=== PATIENT | female | born 1990 | race Caucasian/White ===

== ENCOUNTER 2018-05-26 19:59 | Emergency (ER) | payer SELFPAY ==
--- NOTE | 2018-05-26 22:56 | ER Document Report ---
ED General - General Chief Complaint: Abdominal Pain Stated Complaint: ABDOMINAL PAIN Time Seen by Provider: 05/26/18 22:45 Mode of Arrival: Ambulatory Information source: Patient Notes: 27-year-old female with no reported past medical history presents with complaint of abdominal pain. Patient states abdominal pain started 2 weeks prior to arrival. Pain is located in the epigastric and suprapubic region. She describes it as intermittent, pressure-like. Patient has had urinary frequency and vaginal discharge. She states she is sexually active, does not use protection. Patient has had associated nausea and one episode of vomiting. Her last menstrual period was 04/20/2018. She did take a test approximately 2 weeks ago which she reports to be negative. She has had 2 previous pregnancies that resulted in live births. TRAVEL OUTSIDE OF THE [place] IN LAST 30 DAYS: No - HPI Onset: Other Onset/Duration: Intermittent Quality of pain: Pressure Severity: Mild Associated symptoms: Nausea, Vomiting Exacerbated by: Denies Relieved by: Denies Similar symptoms previously: Yes Recently seen / treated by doctor: No - Related Data Allergies/Adverse Reactions: Penicillins Allergy (Verified 05/27/18 00:30) tramadol Allergy (Verified 05/27/18 00:30) acetaminophen [From Tylenol] Adverse Reaction (Verified 05/27/18 00:30) diphenhydramine [From Benadryl] Adverse Reaction (Verified 05/27/18 00:30) Past Medical History - General Information source: Patient - Social History Smoking Status: Current Some Day Smoker Chew tobacco use (# tins/day): No Frequency of alcohol use: None Drug Abuse: None Lives with: Family Family History: Reviewed & Not Pertinent Patient has suicidal ideation: No Patient has homicidal ideation: No - Medical History Medical History: Negative Renal/ Medical History: Denies: Hx Peritoneal Dialysis Past Surgical History: Reports: Hx Orthopedic Surgery - R wrist Review of Systems - Review of Systems Notes: REVIEW OF SYSTEMS: CONSTITUTIONAL : Denies fever, chills, or sweats. Denies recent illness. Denies weight loss, recent hospitalizations. EENT: Denies visual changes, eye pain. Denies nasal or sinus congestion or discharge. Denies sore throat, oral lesions, difficulty swallowing. CARDIOVASCULAR: Denies chest pain. Denies palpitations. Denies lower extremity edema. RESPIRATORY: Denies cough, cold, or chest congestion. Denies shortness of breath, wheezing. GASTROINTESTINAL: Denies abdominal distention. Denies diarrhea. Denies blood in vomitus, stools, or per rectum. Denies black, tarry stools. Denies constipation. GENITOURINARY: Denies difficulty urinating, painful urination, blood in urine. MUSCULOSKELETAL: Denies back or neck pain or stiffness. Denies joint pain or swelling. SKIN: Denies rash, lesions or sores. HEMATOLOGIC : Denies easy bruising or bleeding. LYMPHATIC: Denies swollen glands. NEUROLOGICAL: Denies confusion or altered mental status. Denies passing out or loss of consciousness. Denies dizziness or lightheadedness. Denies headache. Denies weakness or paralysis. Denies problems difficulty with ambulation, slurred speech. Denies sensory loss, numbness, or tingling. Denies seizures. PSYCHIATRIC: Denies anxiety or stress. Denies depression, suicidal ideation, or homicidal ideation. Denies visual or auditory hallucinations. Physical Exam - Vital signs Vitals: Temp Pulse Resp BP Pulse Ox 98.3 F 86 18 105/77 99 05/26/18 20:38 05/26/18 20:38 05/26/18 20:38 05/26/18 20:38 05/26/18 20:38 - Notes Notes: PHYSICAL EXAMINATION: GENERAL: Well-appearing, well-nourished and in no acute distress. HEAD: Atraumatic, normocephalic. EYES: Pupils equal round and reactive to light, extraocular movements intact, conjunctiva are normal. ENT: Nares patent, oropharynx clear without exudates. Moist mucous membranes. NECK: Normal range of motion, supple without lymphadenopathy LUNGS: Breath sounds clear to auscultation bilaterally and equal. No wheezes rales or rhonchi. HEART: Regular rate and rhythm without murmurs ABDOMEN: Soft, nontender, nondistended abdomen. No guarding, no rebound. No masses appreciated. Female : No external vaginal lesions, no vaginal bleeding, thin white discharge, no cervical motion tenderness, os closed. Musculoskeletal: Normal range of motion, no pitting or edema. No cyanosis. NEUROLOGICAL: Cranial nerves grossly intact. Normal speech, normal gait. Normal sensory, motor exams PSYCH: Normal mood, normal affect. SKIN: Warm, Dry, normal turgor, no rashes or lesions noted. Course - Re-evaluation Re-evalutation: Laboratory 05/26/18 05/26/18 05/26/18 21:33 23:15 23:15 Beta HCG, Quant 600.08 H Total Beta HCG POSITIVE Urine Color YELLOW Urine Appearance CLOUDY Urine pH 6.0 Ur Specific [place] 1.012 Urine Protein NEGATIVE Urine Glucose (UA) NEGATIVE Urine Ketones NEGATIVE Urine Blood SMALL H Urine Nitrite POSITIVE H Urine Bilirubin NEGATIVE Urine Urobilinogen NEGATIVE Ur Leukocyte Esterase LARGE H Urine WBC (Auto) >182 Urine RBC (Auto) 17 Urine Bacteria (Auto) 1+ Urine WBC Clumps MANY Squamous Epi Cells Auto 6 Urine Mucus (Auto) MANY Urine Ascorbic Acid NEGATIVE Urine HCG, Qual POSITIVE H Epi Cells (Wet Prep) Bacteria (Wet Prep) Trichomonas (Wet Prep) Vaginal WBC Vaginal RBC Vaginal Yeast 05/26/18 23:36 Beta HCG, Quant Total Beta HCG Urine Color Urine Appearance Urine pH Ur Specific [place] Urine Protein Urine Glucose (UA) Urine Ketones Urine Blood Urine Nitrite Urine Bilirubin Urine Urobilinogen Ur Leukocyte Esterase Urine WBC (Auto) Urine RBC (Auto) Urine Bacteria (Auto) Urine WBC Clumps Squamous Epi Cells Auto Urine Mucus (Auto) Urine Ascorbic Acid Urine HCG, Qual Epi Cells (Wet Prep) 4+ EPITHELIALS SEEN Bacteria (Wet Prep) 3+ BACTERIA SEEN Trichomonas (Wet Prep) NO TRICHOMONAS SEEN Vaginal WBC 1+ WBCS SEEN Vaginal RBC RARE RBCS SEEN Vaginal Yeast NO YEAST SEEN 05/27/18 01:04 27-year-old female presents with complaint of nausea, urinary frequency and epigastric abdominal pain that started 2 weeks prior to arrival. Patient found to be with a beta quant of 600. No vaginal bleeding on exam. Benign abdominal exam. Urinalysis significant for UTI. Wet prep shows bacterial vaginosis. Patient will follow up with the health department. She received Phenergan, Macrobid and Flagyl during her ED course. Patient provided the opportunity to ask questions, and express concerns. Discharge instructions discussed. Patient is agreeable with discharge home. Return indications explained and discussed with the patient who displays understanding. Patient encouraged to return to the emergency department immediately with any concerns. - Vital Signs Vital signs: Temp Pulse Resp BP Pulse Ox 97.7 F 80 13 103/74 100 05/27/18 01:17 05/27/18 01:17 05/27/18 01:17 05/27/18 01:17 05/27/18 01:17 - Laboratory Laboratory results interpreted by me: 05/26/18 05/26/18 05/26/18 21:33 23:15 23:15 Beta HCG, Quant 600.08 H Urine Blood SMALL H Urine Nitrite POSITIVE H Ur Leukocyte Esterase LARGE H Urine HCG, Qual POSITIVE H Discharge - Discharge Clinical Impression: First trimester , Bacterial vaginosis, Nausea UTI (urinary tract infection) Qualifiers: Urinary tract infection type: acute cystitis Hematuria presence: without hematuria Qualified Code(s): N30.00 - Acute cystitis without hematuria Disposition: HOME, SELF-CARE Instructions: Nitrofurantoin ([facility]), Pelvic Pain in ([facility]), Urinary Tract Infection, Child ([facility]), Vaginosis, Bacterial ([facility]) Additional Instructions: Your testing today shows that you are , have a urinary tract infection and bacterial vaginosis. You will be prescribed Macrobid and Flagyl. Your beta quant today is 600. Your pelvic exam showed no vaginal bleeding. Please follow-up with the health department as soon as you are able. Prescriptions: Metronidazole [Flagyl 500 mg Tablet] 500 mg PO BID #14 tablet Nitrofurantoin Monohyd/M-Cryst [Macrobid 100 mg Capsule] 1 tab PO BID #20 capsule Referrals: MARILYN MAIER [Primary Care Provider] - Follow up as needed [facility] [NO LOCAL MD] - Follow up as needed
[2018-05-26 23:47] LABS: APPEARANCE,URINE CLOUDY; BILIRUBIN,URINE NEGATIVE (NEGATIVE); COLOR,URINE YELLOW; GLUCOSE, URINE NEGATIVE (NEGATIVE); KETONES,URINE NEGATIVE (NEGATIVE); LEUKOCYTE ESTERASE,URINE LARGE (NEGATIVE); NITRITE,URINE POSITIVE (NEGATIVE); PROTEIN,URINE NEGATIVE (NEGATIVE); URINE SPECIFIC GRAVITY 1.012; UROBILINOGEN,URINE NEGATIVE mg/dL (<2.0)
[2018-05-26 23:58] LABS: BACTERIA (WET MOUNT) 3+ BACTERIA SEEN; EPITHELIALS (WET MOUNT) 4+ EPITHELIALS SEEN; RBCS (WET MOUNT) RARE RBCS SEEN; T.VAGINALIS (WET MOUNT) NO TRICHOMONAS SEEN; WBCS (WET MOUNT) 1+ WBCS SEEN; YEAST (WET MOUNT) NO YEAST SEEN
[2018-05-27] MEDS ORDERED: PROMETHAZINE HCL 25 MG TABLET PO ONE (00:11)
[2018-05-27] MEDS ORDERED: NITROFURANTOIN MONOHYD/M-CRYST 100 MG CAPSULE PO ONE (00:11)
[2018-05-27] MEDS ORDERED: METRONIDAZOLE 500 MG TABLET PO ONE (01:03)
[2018-05-27 01:24] VITALS: BP 103/74
[2018-05-27 01:52] LABS: CHLAM PCR NOT DETECTED (NOT DETECT); GON PCR NOT DETECTED (NOT DETECT)
== END 2018-05-27 01:24 | disposition home or self-care (01) ==
LOC: ER 19:59
DX: O23.41 Unspecified infection of urinary tract in pregnancy, first trimester (principal); O23.591 Infection of other part of genital tract in pregnancy, first trimester; N76.0 Acute vaginitis; B96.89 Other specified bacterial agents as the cause of diseases classified elsewhere; R10.13 Epigastric pain; O99.331 Smoking (tobacco) complicating pregnancy, first trimester; Z88.0 Allergy status to penicillin; Z88.6 Allergy status to analgesic agent
CPT/HCPCS: 99284; 36415; 87210; 84702; 81025; 81001; 87491; 87591; J8499

== ENCOUNTER 2018-06-20 21:24 | Emergency (ER) | payer SELFPAY ==
--- NOTE | 2018-06-20 23:26 | ER Document Report ---
ED General - General Chief Complaint: Lower Abdominal Pain Stated Complaint: LOWER BACK PAIN,CRAMPING Time Seen by Provider: 06/20/18 23:15 Notes: Patient is a 27-year-old female. This is her third . She has had one normal and one miscarriage. She presents with complaint of cramping pain in her lower abdomen that started today. Starts on lower abdomen goes up in the epigastric region. She also has cramping pain into her back. She was seen here 5 days ago and diagnosed with and a UTI. She is placed on antibiotics and said those symptoms have since resolved. She has not been sexually active since then. At that time her pelvic exam showed no evidence of gonorrhea and Chlamydia testing was negative. Patient denies any vomiting. She denies fevers. She does start having the pain today and she felt "maybe I will feel better if I have a cigarette". She therefore went outside and smoked. She started to feel lightheaded and therefore came to the ER. No vaginal bleeding. No abnormal discharge. No other complaints at this time. TRAVEL OUTSIDE OF THE [place] IN LAST 30 DAYS: No - Related Data Allergies/Adverse Reactions: Penicillins Allergy (Verified 05/27/18 00:30) tramadol Allergy (Verified 05/27/18 00:30) acetaminophen [From Tylenol] Adverse Reaction (Verified 05/27/18 00:30) diphenhydramine [From Benadryl] Adverse Reaction (Verified 05/27/18 00:30) Past Medical History - General Last Menstrual Period: 04/20/18 - Social History Smoking Status: Current Every Day Smoker Frequency of alcohol use: None Drug Abuse: None Family History: Reviewed & Not Pertinent Patient has suicidal ideation: No Patient has homicidal ideation: No Renal/ Medical History: Denies: Hx Peritoneal Dialysis Past Surgical History: Reports: Hx Orthopedic Surgery - R wrist Review of Systems - Review of Systems Notes: My Normal Review Basic REVIEW OF SYSTEMS: CONSTITUTIONAL : Denies fever, chills, or sweats. Denies recent illness. EENT: Denies eye, ear, throat, or mouth pain or symptoms. Denies nasal or sinus congestion. RESPIRATORY: Denies cough, cold, or chest congestion. Denies shortness of breath, difficulty breathing, or wheezing. GASTROINTESTINAL: abdominal pain. Denies nausea, vomiting, or diarrhea. GENITOURINARY: Denies difficulty urinating, painful urination, burning, frequency, or blood in urine. FEMALE GENITOURINARY: Currently . No vaginal bleeding or discharge. MUSCULOSKELETAL: Denies neck or back pain or joint pain or swelling. SKIN: Denies rash or skin lesions. NEUROLOGICAL: Denies altered mental status or loss of consciousness. Denies headache. Denies weakness or paralysis or loss of use of either side. Denies problems with gait or speech. Denies sensory or motor loss. ALL OTHER SYSTEMS REVIEWED AND NEGATIVE. Physical Exam - Vital signs Vitals: Temp Pulse Resp BP Pulse Ox 98.9 F 101 H 18 104/68 100 06/20/18 22:04 06/20/18 22:04 06/20/18 22:04 06/20/18 22:04 06/20/18 22:04 - Notes Notes: General Appearance: Well nourished, alert, cooperative, no acute distress, no obvious discomfort. Well-appearing. Vitals: reviewed, See vital signs table. Head: no swelling or tenderness to the head Eyes: PERRL, EOMI, Conjuctiva clear Mouth: No decreasd moisture Lungs: No wheezing, No rales, No rhonci, No accessory muscle use, good air exchange bilaterally. Heart: Normal rate, Regular rythm, No murmur, no rub Abdomen: Normal BS, soft, No rigidity, no pain to palpation over the suprapubic and local region, No guarding, no rebound, no abdominal masses, no organomegaly Extremities: strength 5/5 in all extremities, good pulses in all extremities, no swelling or tenderness in the extremities, no edema. Skin: warm, dry, appropriate color, no rash Neuro: speech clear, oriented x 3, normal affect, responds appropriately to questions. Course - Re-evaluation Re-evalutation: 06/21/18 03:43 Patient's ultrasound does not show any complications. Her urinalysis still shows several very tract infection despite being on antibiotics for 5 days now. She is on Macrobid. I will like to switch her to Keflex. She does have allergy to penicillins and therefore we will give her a dose of Rocephin here watch for a little bit to make sure she has no reaction to it and therefore I feel more comfortable switching her over to a cephalosporin antibiotic. Patient is agreeable to this plan. 06/21/18 04:54 Received the Rocephin IV without any reaction. She looks and feels well. I will switch her to Keflex. I did send her urine for culture. Ultrasound did not show any concerning findings. It did show an IUP. I encourage her to quit smoking. I encourage her follow-up closely with OB doctor. I encouraged her return to ER if she has fevers, worsening pain, or any vaginal bleeding. Patient agrees with plan will be discharged home. Dictation of this chart was performed using voice recognition software; therefore, there may be some unintended grammatical errors. - Vital Signs Vital signs: Temp Pulse Resp BP Pulse Ox 97.9 F 72 18 101/87 H 97 06/21/18 04:45 06/21/18 04:45 06/21/18 04:45 06/21/18 04:45 06/21/18 04:45 - Laboratory Laboratory results interpreted by me: 06/21/18 06/21/18 00:10 01:36 Beta HCG, Quant 672499.00 H Urine Ketones TRACE H Urine Nitrite POSITIVE H Urine Urobilinogen 2.0 H Ur Leukocyte Esterase MODERATE H Discharge - Discharge Clinical Impression: UTI (urinary tract infection) Qualifiers: Urinary tract infection type: site unspecified Hematuria presence: without hematuria Qualified Code(s): N39.0 - Urinary tract infection, site not specified Abdominal pain Qualifiers: Abdominal location: unspecified location Qualified Code(s): R10.9 - Unspecified abdominal pain Condition: Good Disposition: HOME, SELF-CARE Additional Instructions: Please return to the ER immediately if you develop fevers, worsening pain, vaginal bleeding, or feel unwell. Please stop smoking. Please stop taking the Macrobid. Start taking the Keflex. Call to make an appointment with an OB physician. Prescriptions: Cephalexin Monohydrate [Keflex 500 mg Capsule] 500 mg PO BID 5 Days #10 capsule Referrals: MARILYN MAIER [NO LOCAL MD] - Follow up as needed GINNY BOONE MD [ACTIVE STAFF] - Follow up in 3-5 days
--- NOTE | 2018-06-21 00:37 | RADIOLOGY REPORT (SQ) ---
EXAM DESCRIPTION: US TRANSVAGINAL COMPLETED DATE/TME: 06/20/2018 23:22 CLINICAL HISTORY: 27 years, Female, abdominal pain in . LMP: 04/20/2018 COMPARISON: None. TECHNIQUE: Complete first trimester obstetrical ultrasound obtained with transvaginal imaging. FINDINGS: The uterus measures 9.1 x 0.4 x 5.9 cm. Within the uterus there is a gestational sac. pole identified with a crown-rump length of 1.82 cm compatible with an estimated gestational age of 8 weeks, 2 days. heart rate of 168 bpm. Yolk sac is identified and has a normal appearance. Qualitatively normal appearing gestational sac. No myometrial abnormalities. Cervical length of 3.0 cm. No large adnexal masses. The ovaries are not identified. No free pelvic fluid. IMPRESSION: 1. Single live intrauterine with estimated gestational age of 8 weeks, 2 days. heart rate of 168 bpm 2010 [employer]- All Rights Reserved
[2018-06-21 01:29] LABS: APPEARANCE,URINE CLOUDY; BILIRUBIN,URINE NEGATIVE (NEGATIVE); COLOR,URINE YELLOW; GLUCOSE, URINE NEGATIVE (NEGATIVE); KETONES,URINE TRACE mg/dL (NEGATIVE); LEUKOCYTE ESTERASE,URINE MODERATE (NEGATIVE); NITRITE,URINE POSITIVE (NEGATIVE); PROTEIN,URINE NEGATIVE (NEGATIVE); URINE SPECIFIC GRAVITY 1.025
[2018-06-21] MEDS ORDERED: CEFTRIAXONE INJ 250 MG VIAL IM ONE (03:43)
[2018-06-21] MEDS ORDERED: LIDOCAINE 1% INJ-PF (10 MG/ML) 30 ML SDV INFIL ONE (03:43)
[2018-06-21] MEDS ORDERED: CEFTRIAXONE INJ 250 MG VIAL IV ONE (04:01)
[2018-06-21 04:46] VITALS: BP 101/87
== END 2018-06-21 05:04 | disposition home or self-care (01) ==
LOC: ER 21:24
DX: O23.41 Unspecified infection of urinary tract in pregnancy, first trimester (principal); O26.891 Other specified pregnancy related conditions, first trimester; R10.13 Epigastric pain; R10.30 Lower abdominal pain, unspecified; O99.89 Other specified diseases and conditions complicating pregnancy, childbirth and the puerperium; M54.5 Low back pain; O99.331 Smoking (tobacco) complicating pregnancy, first trimester; F17.210 Nicotine dependence, cigarettes, uncomplicated; Z3A.00 Weeks of gestation of pregnancy not specified; Z88.0 Allergy status to penicillin; Z88.5 Allergy status to narcotic agent; Z3A.08 8 weeks gestation of pregnancy
CPT/HCPCS: 36415; 87086; 84702; 87088; 81001; 87186; 76817; 93976; J0696

== ENCOUNTER 2018-09-30 14:48 | Outpatient (CLI) | payer OTHER ==
[2018-09-30] MEDS ORDERED: ACETAMINOPHEN 325 MG TABLET ONE (16:08)
[2018-09-30 16:35] LABS: APPEARANCE,URINE CLOUDY; BILIRUBIN,URINE NEGATIVE (NEGATIVE); GLUCOSE, URINE NEGATIVE (NEGATIVE); KETONES,URINE NEGATIVE (NEGATIVE); LEUKOCYTE ESTERASE,URINE SMALL (NEGATIVE); NITRITE,URINE NEGATIVE (NEGATIVE); PROTEIN,URINE 30 mg/dL (NEGATIVE)
[2018-09-30 16:36] LABS: COLOR,URINE YELLOW
[2018-09-30 16:57] LABS: URINE AMPHETAMINES SCREEN NEGATIVE; URINE BARBITURATES SCREEN NEGATIVE; URINE BENZODIAZEPINES SCREEN NEGATIVE; URINE COCAINE SCREEN NEGATIVE; URINE MARIJUANA (THC) SCREEN NEGATIVE; URINE METHADONE SCREEN NEGATIVE; URINE PHENCYCLIDINE SCREEN NEGATIVE
== END 2018-09-30 16:20 | disposition home or self-care (01) ==
LOC: LC 14:48
PROVIDERS: ATTEND Obstetrics & Gynecology
DX: O26.892 Other specified pregnancy related conditions, second trimester (principal); Z3A.23 23 weeks gestation of pregnancy
CPT/HCPCS: 80307; 81001

== ENCOUNTER 2018-10-30 18:21 | Outpatient (CLI) | payer OTHER ==
[2018-10-30 19:32] LABS: APPEARANCE,URINE TURBID; BILIRUBIN,URINE NEGATIVE (NEGATIVE); COLOR,URINE YELLOW; GLUCOSE, URINE NEGATIVE (NEGATIVE); KETONES,URINE NEGATIVE (NEGATIVE); LEUKOCYTE ESTERASE,URINE MODERATE (NEGATIVE); NITRITE,URINE NEGATIVE (NEGATIVE); PROTEIN,URINE NEGATIVE (NEGATIVE); URINE SPECIFIC GRAVITY 1.013
[2018-10-30 19:36] LABS: BACTERIA (WET MOUNT) 4+ BACTERIA SEEN; EPITHELIALS (WET MOUNT) 4+ EPITHELIALS SEEN; RBCS (WET MOUNT) FEW RBCS SEEN; T.VAGINALIS (WET MOUNT) NO TRICHOMONAS SEEN; WBCS (WET MOUNT) FEW WBCS SEEN; YEAST (WET MOUNT) NO YEAST SEEN
[2018-10-30 19:40] LABS: URINE AMPHETAMINES SCREEN NEGATIVE; URINE BARBITURATES SCREEN NEGATIVE; URINE BENZODIAZEPINES SCREEN NEGATIVE; URINE COCAINE SCREEN NEGATIVE; URINE MARIJUANA (THC) SCREEN NEGATIVE; URINE METHADONE SCREEN NEGATIVE; URINE PHENCYCLIDINE SCREEN NEGATIVE
[2018-10-30] MEDS ORDERED: AZITHROMYCIN 1 GM SUSP PACKET PO ONE (20:33)
[2018-10-30] MEDS ORDERED: AZITHROMYCIN 250 MG TABLET ONE (20:40)
[2018-10-30] MEDS ORDERED: AZITHROMYCIN 250 MG TABLET PO ONE (21:04)
--- NOTE | 2018-10-30 21:57 | RADIOLOGY REPORT (SQ) ---
US PELVIS HISTORY: Evaluate cervical length. COMPARISON: None. TECHNIQUE: Grayscale, color Doppler, and spectral Doppler ultrasound images of the pelvis were obtained. FINDINGS: The cervical closed with a length of 3.5 cm. The heart rate is 150 bpm. The placenta is in breech but variable position. The clinical gestational age is 27 weeks 4 days. IMPRESSION: Closed cervix measuring 3.5 cm.
== END 2018-10-30 22:21 | disposition home or self-care (01) ==
LOC: LC 18:21
PROVIDERS: ATTEND Obstetrics & Gynecology
PROC: 4A1HXCZ Monitoring of Products of Conception, Cardiac Rate, External Approach (ICD-10-PCS; principal; 2018-10-30)
DX: O26.892 Other specified pregnancy related conditions, second trimester (principal); R19.7 Diarrhea, unspecified; R12 Heartburn; R10.9 Unspecified abdominal pain; Z3A.27 27 weeks gestation of pregnancy
CPT/HCPCS: 87210; 81001; 80307; 76815; 59899; Q0114

== ENCOUNTER 2018-11-17 00:25 | Outpatient (CLI) | payer OTHER ==
[2018-11-17 01:12] LABS: APPEARANCE,URINE SLIGHTLY-CLOUDY; BILIRUBIN,URINE NEGATIVE (NEGATIVE); COLOR,URINE YELLOW; GLUCOSE, URINE NEGATIVE (NEGATIVE); KETONES,URINE NEGATIVE (NEGATIVE); LEUKOCYTE ESTERASE,URINE LARGE (NEGATIVE); NITRITE,URINE NEGATIVE (NEGATIVE); PROTEIN,URINE NEGATIVE (NEGATIVE); URINE SPECIFIC GRAVITY 1.014; UROBILINOGEN,URINE NEGATIVE mg/dL (<2.0)
[2018-11-17 01:23] LABS: URINE AMPHETAMINES SCREEN NEGATIVE; URINE BARBITURATES SCREEN NEGATIVE; URINE BENZODIAZEPINES SCREEN NEGATIVE; URINE COCAINE SCREEN NEGATIVE; URINE MARIJUANA (THC) SCREEN NEGATIVE; URINE METHADONE SCREEN NEGATIVE; URINE PHENCYCLIDINE SCREEN NEGATIVE
[2018-11-17 01:31] LABS: T.VAGINALIS (WET MOUNT) NO TRICHOMONAS SEEN
[2018-11-17 01:32] LABS: BACTERIA (WET MOUNT) 4+ BACTERIA SEEN; EPITHELIALS (WET MOUNT) 3+ EPITHELIALS SEEN; RBCS (WET MOUNT) 1+ RBCS SEEN; WBCS (WET MOUNT) 2+ WBCS SEEN; YEAST (WET MOUNT) YEAST SEEN
[2018-11-17 02:41] LABS: CHLAM PCR NOT DETECTED (NOT DETECT); GON PCR NOT DETECTED (NOT DETECT)
--- NOTE | 2018-11-17 02:58 | RADIOLOGY REPORT (SQ) ---
CLINICAL HISTORY: R/O PTL, pt with vaginal pressure COMPARISON: October 30, 2018. TECHNIQUE: US LIMITED on 11/17/2018 12:00 AM OBSERVATION ASSISTANT FINDINGS: The cervix is closed and measures 3.3 cm. There is a single live intrauterine gestation in vertex presentation with a heart rate of 155 bpm. PEDRO is low normal at 6.3 cm. IMPRESSION: Low normal PEDRO at 6.3 cm.
== END 2018-11-17 03:25 | disposition home or self-care (01) ==
LOC: LC 00:25
PROVIDERS: ATTEND Obstetrics & Gynecology
PROC: 4A1HXCZ Monitoring of Products of Conception, Cardiac Rate, External Approach (ICD-10-PCS; principal; 2018-11-17)
DX: O26.893 Other specified pregnancy related conditions, third trimester (principal); R12 Heartburn; M54.9 Dorsalgia, unspecified; Z3A.30 30 weeks gestation of pregnancy
CPT/HCPCS: 76815; 80307; 81001; 84112; 87210; 87491; 87591; 94760

== ENCOUNTER 2018-11-26 15:32 | Outpatient (CLI) | payer MEDICAID, OTHER ==
[2018-11-26 16:27] LABS: APPEARANCE,URINE SLIGHTLY-CLOUDY; BILIRUBIN,URINE NEGATIVE (NEGATIVE); GLUCOSE, URINE NEGATIVE (NEGATIVE); KETONES,URINE 80 mg/dL (NEGATIVE); LEUKOCYTE ESTERASE,URINE MODERATE (NEGATIVE); NITRITE,URINE NEGATIVE (NEGATIVE); PROTEIN,URINE 100 mg/dL (NEGATIVE); URINE SPECIFIC GRAVITY 1.027
[2018-11-26 16:28] LABS: COLOR,URINE DARK YELLOW
[2018-11-26] MEDS ORDERED: FLUCONAZOLE 100 MG TABLET ONE (16:39)
[2018-11-26 16:42] LABS: URINE AMPHETAMINES SCREEN NEGATIVE; URINE BARBITURATES SCREEN NEGATIVE; URINE BENZODIAZEPINES SCREEN NEGATIVE; URINE COCAINE SCREEN NEGATIVE; URINE MARIJUANA (THC) SCREEN NEGATIVE; URINE METHADONE SCREEN NEGATIVE; URINE PHENCYCLIDINE SCREEN NEGATIVE
--- NOTE | 2018-11-26 17:26 | RADIOLOGY REPORT (SQ) ---
EXAM DESCRIPTION: U/S OB LIMITED COMPLETED DATE/TIME: 11/26/2018 5:07 pm REASON FOR STUDY: cervical length . The patient is 31 weeks 3 days . COMPARISON: Ultrasound OB 11/17/2018. TECHNIQUE: Limited transvaginal and transabdominal grayscale ultrasound for evaluation of specific r equested obstetrical parameters. LIMITATIONS: None. FINDINGS: CERVICAL LENGTH: 5.4 cm. Closed. FHR: 136 beats per minute. PRESENTATION: Breech. PLACENTA: Not assessed ANATOMY: Not assessed IMPRESSION: LIMITED OBSTETRICAL ULTRASOUND WITH MEASURED PARAMETERS DELINEATED ABOVE. Trimester of : Third trimester - 28 weeks to delivery. TECHNICAL DOCUMENTATION: JOB ID: [id number] 2010 [employer]- All Rights Reserved Reading location - IP/workstation name: [email or web address]
--- NOTE | 2018-11-26 17:54 | Non Stress Test Report ---
Non Stress Test Datetime Report Generated by CPN: 11/26/2018 17:53 DEMOGRAPHIC EGA NST: 31.3 INDICATION Indication for Study: labor; Other Indication for Study (NST) Other: ordered by provider VITAL SIGNS Temperature - NST: 98.5 RESP - NST: 16 MONITORING Monitor Explained: Monitor Explained; Test Explained; Patient Verbalized Understanding Time on Monitor: 11/26/2018 17:09 Time off Monitor: 11/26/2018 17:33 NST Duration: 24 NST INTERVENTIONS NST Interventions: PO Hydration Physician Notified NST: Dr Graves BABY A: [id number] BABY A Movement : Present Contraction Frequency : irritability FHR Baseline : 135 Accelerations : 15X15 Decelerations : None Variability : Moderate 6-25bpm Variability : Moderate 6-25bpm NST Review: Meets Criteria for Reactive NST NST Review and Verified By : Walter Arnett RN NST REPORT Report Trigger: Send Report
[2018-11-27] MEDS ORDERED: FLUCONAZOLE 100 MG TABLET PO ONE (16:30)
== END 2018-11-26 17:45 | disposition home or self-care (01) ==
LOC: LC 15:32
PROVIDERS: ATTEND Obstetrics & Gynecology
PROC: 4A1HXCZ Monitoring of Products of Conception, Cardiac Rate, External Approach (ICD-10-PCS; principal; 2018-11-26)
DX: O60.03 Preterm labor without delivery, third trimester (principal); Z3A.31 31 weeks gestation of pregnancy
CPT/HCPCS: 59025; 76815; 80307; 81001

== ENCOUNTER 2018-12-01 23:10 | Outpatient (CLI) | payer OTHER ==
[2018-12-01 23:47] LABS: APPEARANCE,URINE SLIGHTLY-CLOUDY; BILIRUBIN,URINE NEGATIVE (NEGATIVE); COLOR,URINE YELLOW; GLUCOSE, URINE NEGATIVE (NEGATIVE); KETONES,URINE NEGATIVE (NEGATIVE); LEUKOCYTE ESTERASE,URINE NEGATIVE (NEGATIVE); NITRITE,URINE NEGATIVE (NEGATIVE); PROTEIN,URINE NEGATIVE (NEGATIVE); UROBILINOGEN,URINE NEGATIVE mg/dL (<2.0)
--- NOTE | 2018-12-01 23:57 | Non Stress Test Report ---
Non Stress Test Datetime Report Generated by CPN: 12/01/2018 23:56 DEMOGRAPHIC Test Number: 2 EGA NST: 32.2 INDICATION Indication for Study: Ordered by Provider MONITORING Monitor Explained: Monitor Explained; Test Explained; Patient Verbalized Understanding Time on Monitor: 12/01/2018 23:30 Time off Monitor: 12/01/2018 23:54 NST Duration: 24 NST INTERVENTIONS NST Interventions: None Physician Notified NST: Pastor BABY A: [id number] BABY A Movement : Present Contraction Frequency : x1 FHR Baseline : 140 Accelerations : 15X15 Decelerations : None Variability : Moderate 6-25bpm NST Review: Meets Criteria for Reactive NST NST Review and Verified By : ALEX Morrow NST Results: Reactive NST REPORT Report Trigger: Send Report
[2018-12-02 00:01] LABS: URINE AMPHETAMINES SCREEN NEGATIVE; URINE BARBITURATES SCREEN NEGATIVE; URINE BENZODIAZEPINES SCREEN NEGATIVE; URINE COCAINE SCREEN NEGATIVE; URINE MARIJUANA (THC) SCREEN NEGATIVE; URINE METHADONE SCREEN NEGATIVE; URINE PHENCYCLIDINE SCREEN NEGATIVE
[2018-12-02 01:17] LABS: CHLAM PCR NOT DETECTED (NOT DETECT); GON PCR NOT DETECTED (NOT DETECT)
== END 2018-12-02 00:27 | disposition home or self-care (01) ==
LOC: LC 23:10
PROVIDERS: ATTEND Obstetrics & Gynecology Gynecology
PROC: 4A1HXCZ Monitoring of Products of Conception, Cardiac Rate, External Approach (ICD-10-PCS; principal; 2018-12-01)
DX: O47.03 False labor before 37 completed weeks of gestation, third trimester (principal); Z3A.32 32 weeks gestation of pregnancy
CPT/HCPCS: 59025; 80307; 81005; 87491; 87591

== ENCOUNTER 2018-12-21 19:11 | Outpatient (CLI) | payer OTHER ==
[2018-12-21 19:40] LABS: APPEARANCE,URINE SLIGHTLY-CLOUDY; BILIRUBIN,URINE NEGATIVE (NEGATIVE); COLOR,URINE YELLOW; GLUCOSE, URINE NEGATIVE (NEGATIVE); KETONES,URINE 20 mg/dL (NEGATIVE); LEUKOCYTE ESTERASE,URINE NEGATIVE (NEGATIVE); NITRITE,URINE NEGATIVE (NEGATIVE); PROTEIN,URINE NEGATIVE (NEGATIVE); URINE SPECIFIC GRAVITY 1.019; UROBILINOGEN,URINE NEGATIVE mg/dL (<2.0)
[2018-12-21 20:11] LABS: URINE PHENCYCLIDINE SCREEN NEGATIVE
[2018-12-21 20:20] LABS: URINE AMPHETAMINES SCREEN NEGATIVE; URINE BARBITURATES SCREEN NEGATIVE; URINE BENZODIAZEPINES SCREEN NEGATIVE; URINE MARIJUANA (THC) SCREEN NEGATIVE; URINE METHADONE SCREEN NEGATIVE
[2018-12-21 20:49] LABS: URINE COCAINE SCREEN NEGATIVE
[2018-12-21 21:36] LABS: CHLAM PCR NOT DETECTED (NOT DETECT); GON PCR NOT DETECTED (NOT DETECT)
--- NOTE | 2018-12-21 21:56 | Non Stress Test Report ---
Non Stress Test Datetime Report Generated by CPN: 12/21/2018 21:55 DEMOGRAPHIC EGA NST: 35.0 INDICATION Indication for Study: Ordered by Provider MONITORING Monitor Explained: Monitor Explained; Test Explained; Patient Verbalized Understanding Time on Monitor: 12/21/2018 20:00 Time off Monitor: 12/21/2018 21:46 NST Duration: 106 NST INTERVENTIONS NST Interventions: PO Hydration; IV Fluids; Reposition Patient Physician Notified NST: Palmira BABY A: [id number] BABY A Movement : Present Contraction Frequency : irregular FHR Baseline : 125 Accelerations : 15X15 Decelerations : None Variability : Moderate 6-25bpm NST Review: Meets Criteria for Reactive NST NST Review and Verified By : CARLOS Sanchez Results: Reactive NST REPORT Report Trigger: Send Report
== END 2018-12-21 22:02 | disposition home or self-care (01) ==
LOC: LC 19:11
PROVIDERS: ATTEND Student in an Organized Health Care Education/Training Program
PROC: 4A1HXCZ Monitoring of Products of Conception, Cardiac Rate, External Approach (ICD-10-PCS; principal; 2018-12-21)
DX: O47.03 False labor before 37 completed weeks of gestation, third trimester (principal); Z3A.35 35 weeks gestation of pregnancy
CPT/HCPCS: 59025; 80307; 81001; 87077; 87081; 87491; 87591

== ENCOUNTER 2019-01-08 04:32 | Outpatient (CLI) | payer OTHER ==
[2019-01-08 05:35] LABS: APPEARANCE,URINE CLEAR; BILIRUBIN,URINE NEGATIVE (NEGATIVE); COLOR,URINE STRAW; GLUCOSE, URINE NEGATIVE (NEGATIVE); KETONES,URINE NEGATIVE (NEGATIVE); LEUKOCYTE ESTERASE,URINE NEGATIVE (NEGATIVE); NITRITE,URINE NEGATIVE (NEGATIVE); PROTEIN,URINE NEGATIVE (NEGATIVE); URINE SPECIFIC GRAVITY 1.002; UROBILINOGEN,URINE NEGATIVE mg/dL (<2.0)
[2019-01-08 05:52] LABS: URINE AMPHETAMINES SCREEN NEGATIVE; URINE BARBITURATES SCREEN NEGATIVE; URINE BENZODIAZEPINES SCREEN NEGATIVE; URINE COCAINE SCREEN NEGATIVE; URINE MARIJUANA (THC) SCREEN NEGATIVE; URINE METHADONE SCREEN NEGATIVE; URINE PHENCYCLIDINE SCREEN NEGATIVE
--- NOTE | 2019-01-08 06:40 | Non Stress Test Report ---
Non Stress Test Datetime Report Generated by CPN: 01/08/2019 06:40 DEMOGRAPHIC EGA NST: 37.4 INDICATION Indication for Study: Ordered by Provider MONITORING Monitor Explained: Monitor Explained; Test Explained; Patient Verbalized Understanding Time on Monitor: 01/08/2019 05:03 Time off Monitor: 01/08/2019 06:08 NST Duration: 65 NST INTERVENTIONS NST Interventions: PO Hydration Physician Notified NST: Goode BABY A: [id number] BABY A Movement : Present Contraction Frequency : 2-3 FHR Baseline : 125 Accelerations : 15X15 Decelerations : None Variability : Moderate 6-25bpm NST Review: Meets Criteria for Reactive NST NST Review and Verified By : Johnny Alexander RN NST Results: Reactive NST REPORT Report Trigger: Send Report
== END 2019-01-08 08:39 | disposition home or self-care (01) ==
LOC: LC 04:32
PROVIDERS: ATTEND Obstetrics & Gynecology
PROC: 4A1HXCZ Monitoring of Products of Conception, Cardiac Rate, External Approach (ICD-10-PCS; principal; 2019-01-08)
DX: O47.1 False labor at or after 37 completed weeks of gestation (principal)
CPT/HCPCS: 59025; 80307; 81001

== ENCOUNTER 2019-01-13 10:46 | Outpatient (CLI) | payer OTHER ==
[2019-01-13 11:21] LABS: APPEARANCE,URINE SLIGHTLY-CLOUDY; BILIRUBIN,URINE NEGATIVE (NEGATIVE); COLOR,URINE YELLOW; GLUCOSE, URINE NEGATIVE (NEGATIVE); KETONES,URINE NEGATIVE (NEGATIVE); LEUKOCYTE ESTERASE,URINE SMALL (NEGATIVE); NITRITE,URINE NEGATIVE (NEGATIVE); PROTEIN,URINE NEGATIVE (NEGATIVE); URINE SPECIFIC GRAVITY 1.005; UROBILINOGEN,URINE NEGATIVE mg/dL (<2.0)
[2019-01-13 11:40] LABS: URINE AMPHETAMINES SCREEN NEGATIVE; URINE BARBITURATES SCREEN NEGATIVE; URINE BENZODIAZEPINES SCREEN NEGATIVE; URINE COCAINE SCREEN NEGATIVE; URINE MARIJUANA (THC) SCREEN NEGATIVE; URINE METHADONE SCREEN NEGATIVE; URINE PHENCYCLIDINE SCREEN NEGATIVE
--- NOTE | 2019-01-13 12:56 | Non Stress Test Report ---
Non Stress Test Datetime Report Generated by CPN: 01/13/2019 12:56 DEMOGRAPHIC Test Number: 5 EGA NST: 38.2 INDICATION Indication for Study: Ordered by Provider Indication for Study (NST) Other: lc VITAL SIGNS Temperature - NST: 98.1 Pulse - NST: 113 RESP - NST: 18 NBPSYS NST: 111 NBPDIA NST: 76 MONITORING Monitor Explained: Monitor Explained; Test Explained Time on Monitor: 01/13/2019 11:10 Time off Monitor: 01/13/2019 12:30 NST Duration: 80 NST INTERVENTIONS NST Interventions: PO Hydration Physician Notified NST: A Goncalves CNM BABY A: [id number] BABY A Movement : Present FHR Baseline : 125 Accelerations : 15X15 Decelerations : None Variability : Moderate 6-25bpm NST Review: Meets Criteria for Reactive NST NST Review and Verified By : Walter Arnett RN NST Results: Reactive NST REPORT Report Trigger: Send Report
== END 2019-01-13 13:14 | disposition home or self-care (01) ==
LOC: LC 10:46
PROVIDERS: ATTEND Obstetrics & Gynecology Gynecology
DX: O36.8390 Maternal care for abnormalities of the fetal heart rate or rhythm, unspecified trimester, not applicable or unspecified (principal); Z3A.38 38 weeks gestation of pregnancy
CPT/HCPCS: 80307; 81005

== ENCOUNTER 2019-12-13 18:51 | Emergency (ER) | payer OTHER ==
--- NOTE | 2019-12-13 19:37 | ER Document Report ---
ED Medical Screen (RME) - General Chief Complaint: Numbness of Arm Stated Complaint: POSSIBLE STRESS INDUCED STROKES Time Seen by Provider: 12/13/19 19:22 Primary Care Provider: DIYA SANDOVAL MD [Primary Care Provider] - Follow up as needed Notes: Patient is a 28-year-old female who presents to the emergency department with a chief complaint of right arm numbness. Patient reports 2 days ago developing right arm heaviness and numbness. Patient reports that this is intermittent and will at times also be in the right leg, left arm. Patient also reports chest heaviness. 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 Patient has nausea, vomiting or diarrhea. Patient denies urinary symptoms. Patient denies fever. TRAVEL OUTSIDE OF THE [place] IN LAST 30 DAYS: No - Related Data Allergies/Adverse Reactions: Penicillins Allergy (Verified 12/13/19 19:30) tramadol Allergy (Verified 12/13/19 19:30) acetaminophen [From Tylenol] Adverse Reaction (Verified 12/13/19 19:30) diphenhydramine [From Benadryl] Adverse Reaction (Verified 12/13/19 19:30) Past Medical History - Social History Frequency of alcohol use: Social Drug Abuse: None Renal/ Medical History: Denies: Hx Peritoneal Dialysis Past Surgical History: Reports: Hx Orthopedic Surgery - R wrist Physical Exam - Vital signs Vitals: Temp Pulse Resp BP Pulse Ox 98.1 F 110 H 18 128/91 H 99 12/13/19 18:59 12/13/19 18:59 12/13/19 18:59 12/13/19 18:59 12/13/19 18:59 Course - Re-evaluation Re-evalutation: 12/13/19 19:36 PERRLA, 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 Patient ambulatory with a steady gait. Patient reports intermittent right arm numbness and tingling that will jump to the right lower extremity and left lower extremity. Patient reports also having left arm at times. This is been intermittent for 2 days. Will obtain basic labs, EKG, urinalysis. Patient no acute distress here in triage. I have greeted and performed a rapid initial assessment of this patient. A comprehensive ED assessment and evaluation of the patient, analysis of test results and completion of the medical decision making process will be conducted by additional ED providers. - Vital Signs Vital signs: Temp Pulse Resp BP Pulse Ox 98.1 F 110 H 18 128/91 H 99 12/13/19 18:59 12/13/19 18:59 12/13/19 18:59 12/13/19 18:59 12/13/19 18:59 Doctor's Discharge - Discharge Referrals: DIYA SANDOVAL MD [Primary Care Provider] - Follow up as needed
[2019-12-13] MEDS ORDERED: NORMAL SALINE 1000 ML 1,000 ML IV ONE (19:38)
[2019-12-13 20:43] LABS: ABSOLUTE EOSINOPHILS # (AUTO) 0.1 10^3/uL (0.0-0.6); ABSOLUTE LYMPHOCYTES (AUTO) 1.5 10^3/uL (0.5-4.7); ABSOLUTE MONOCYTES (AUTO) 0.4 10^3/uL (0.1-1.4); ABSOLUTE NEUT (AUTO) 4.9 10^3/uL (1.7-8.2); BASOPHILS % (AUTO) 0.5 % (0-2); HEMATOCRIT 42.2 % (36.0-47.0); HEMOGLOBIN 14.2 g/dL (12.0-15.5); LYMPHOCYTES % (AUTO) 21.8 % (13-45); MEAN CORPUSCULAR HEMOGLOBIN 29.3 pg (27.0-33.4); MEAN CORPUSCULAR HGB CONC 33.6 g/dL (32.0-36.0); MEAN CORPUSCULAR VOLUME 87 fl (80-97); PLATELET COUNT 285 10^3/uL (150-450); RED BLOOD COUNT 4.84 10^6/uL (3.72-5.28); RED CELL DISTRIBUTION WIDTH 15.1 % (11.5-14.0); SEGMENTED NEUTROPHILS % (AUTO) 70.7 % (42-78); TOTAL CELLS COUNTED % (AUTO) 100 %; WHITE BLOOD COUNT 6.9 10^3/uL (4.0-10.5)
[2019-12-13 20:56] LABS: ALBUMIN 4.6 g/dL (3.5-5.0); ALKALINE PHOSPHATASE 80 U/L (38-126); ANION GAP 7 (5-19); ASPARTATE AMINO TRANSFERASE 18 U/L (14-36); BILIRUBIN,TOTAL 0.4 mg/dL (0.2-1.3); BLOOD UREA NITROGEN 17 mg/dL (7-20); CALCIUM 9.3 mg/dL (8.4-10.2); CARBON DIOXIDE 28 mmol/L (22-30); CHLORIDE 103 mmol/L (98-107); GLUCOSE 87 mg/dL (75-110); POTASSIUM 4.8 mmol/L (3.6-5.0); TOTAL PROTEIN 7.7 g/dL (6.3-8.2)
[2019-12-13 21:06] LABS: APPEARANCE,URINE CLOUDY; BILIRUBIN,URINE NEGATIVE (NEGATIVE); COLOR,URINE AMBER; GLUCOSE, URINE NEGATIVE (NEGATIVE); KETONES,URINE TRACE mg/dL (NEGATIVE); LEUKOCYTE ESTERASE,URINE MODERATE (NEGATIVE); NITRITE,URINE POSITIVE (NEGATIVE); PROTEIN,URINE 30 mg/dL (NEGATIVE); URINE SPECIFIC GRAVITY 1.026
[2019-12-14] MEDS ORDERED: NITROFURANTOIN MONOHYD/M-CRYST 100 MG CAPSULE PO ONE (03:16)
[2019-12-14 03:18] VITALS: BP 111/70
--- NOTE | 2019-12-14 03:19 | ER Document Report ---
HPI - HPI Time Seen by Provider: 12/13/19 19:22 Pain Level: 0 Notes: 28-year-old female patient with history of anxiety and depression presenting to the emergency department with complaints of numbness and tingling in her extremities as well as dysuria. Patient reports that she has a history of "stress-induced strokes". She states that a few days ago she was under a lot of stress as she is going through her second divorce. She states that she started having numbness and tingling her right arm which then progressed to her left leg. She states a history of this 2 years ago when she was going through her first divorce. Patient does not take any medications for her anxiety or depression. - CONSTITUTIONAL Constitutional: DENIES: Fever, Chills Past Medical History - General Information source: Patient - Social History Smoking Status: Current Every Day Smoker Frequency of alcohol use: Social Drug Abuse: None Family History: Reviewed & Not Pertinent Patient has suicidal ideation: No Patient has homicidal ideation: No Renal/ Medical History: Denies: Hx Peritoneal Dialysis Psychiatric Medical History: Reports: Hx Anxiety, Hx Depression Past Surgical History: Reports: Hx Orthopedic Surgery - R wrist Vertical Provider Document - CONSTITUTIONAL Notes: PHYSICAL EXAMINATION: GENERAL: Well-appearing, well-nourished and in no acute distress. HEAD: Atraumatic, normocephalic. EYES: Pupils equal round and reactive to light, extraocular movements intact, conjunctiva are normal. ENT: Nares patent, oropharynx clear without exudates. Moist mucous membranes. NECK: Normal range of motion, supple without lymphadenopathy LUNGS: Breath sounds clear to auscultation bilaterally and equal. No wheezes rales or rhonchi. HEART: Regular rate and rhythm without murmurs ABDOMEN: Soft, nontender, nondistended abdomen. No guarding, no rebound. No masses appreciated. Female : deferred Musculoskeletal: Normal range of motion, no pitting or edema. No cyanosis. NEUROLOGICAL: Cranial nerves grossly intact. Normal speech, normal gait. Norm al sensory, motor exams PSYCH: Normal mood, normal affect. SKIN: Warm, Dry, normal turgor, no rashes or lesions noted. - INFECTION CONTROL TRAVEL OUTSIDE OF THE [place] IN LAST 30 DAYS: No Course - Re-evaluation Re-evalutation: Patient appears well, nontoxic, exam unremarkable. No neurological deficits. Patient does have a urinalysis showing a urinary tract infection. We discussed at length her symptoms of alternating extremities having [id number] feeling. I explained to this patient that this is not strokelike symptoms. It is likely a manifestation of a mental health issue such as severe anxiety. I encouraged her to please follow-up with a mental health provider. Patient agreeable to same. - Vital Signs Vital signs: Temp Pulse Resp BP Pulse Ox 97.9 F 78 18 107/71 99 12/14/19 00:43 12/14/19 00:43 12/14/19 00:43 12/14/19 00:43 12/14/19 00:43 - Laboratory Result Diagrams: 12/13/19 20:20 12/13/19 20:20 Laboratory results interpreted by me: 12/13/19 12/13/19 20:20 20:20 RDW 15.1 H Urine Protein 30 H Urine Ketones TRACE H Urine Blood SMALL H Urine Nitrite POSITIVE H Urine Urobilinogen 2.0 H Ur Leukocyte Esterase MODERATE H Discharge - Discharge Clinical Impression: Urinary tract infection Qualifiers: Urinary tract infection type: site unspecified Hematuria presence: without hematuria Qualified Code(s): N39.0 - Urinary tract infection, site not specified Condition: Stable Disposition: HOME, SELF-CARE Instructions: Urinary Tract Infection ([facility]) Additional Instructions: Please take medications as prescribed. Follow-up with mental health for evaluation of your symptoms. Prescriptions: Nitrofurantoin Monohyd/M-Cryst [Macrobid 100 mg Capsule] 100 mg PO BID #14 cap Referrals: DIYA SANDOVAL MD [Primary Care Provider] - Follow up as needed
--- NOTE | 2019-12-14 06:53 | EKG REPORT ---
SEVERITY:- NORMAL ECG - SINUS RHYTHM : Confirmed by: Savage Friedman MD 14-Dec-2019 06:53:20
== END 2019-12-14 03:27 | disposition home or self-care (01) ==
LOC: ER 18:51 → EEVIPCON 18:51 → ER 12-14 03:27
DX: N39.0 Urinary tract infection, site not specified (principal); F41.9 Anxiety disorder, unspecified; R20.0 Anesthesia of skin; F17.200 Nicotine dependence, unspecified, uncomplicated; Z88.0 Allergy status to penicillin; Z88.6 Allergy status to analgesic agent
CPT/HCPCS: 36415; 80053; 81001; 81025; 84484; 85025; 87086; 87088; 87186; 93005; 93010; 96360; 99284; J7030; J8499

== ENCOUNTER 2020-03-20 15:54 | Emergency (ER) | payer OTHER ==
--- NOTE | 2020-03-20 18:03 | ER Document Report ---
ED GI/ - General Chief Complaint: OB Problem (<20wks) Stated Complaint: ABDOMINAL DISCOMFORT Time Seen by Provider: 03/20/20 17:39 Primary Care Provider: [facility] [Provider Group] - Follow up as needed Mode of Arrival: Ambulatory Information source: Patient Notes: 29-year-old female presented to ED for nausea and vomiting and abdominal as well as pelvic pain since Wednesday. She states that she was having some nausea and vomiting on 11 March and went to the health department and they told her she was . He states she has not had any other testing done as yet. She states they have not given her any medicines except for the told her to take the vitamins which she has started. She states he stopped smoking and drinking as of March 11 when she found out she was . Patient states she did go to [employer] was able to eat half a sandwich just before coming to the emergency room because she felt like she needed to eat. TRAVEL OUTSIDE OF THE [place] IN LAST 30 DAYS: No - HPI Patient complains to provider of: Abdominal pain, Pelvic pain, , Vomiting Onset: Other Timing/Duration: Intermittent - Off-and-on for 2 weeks Quality of pain: Cramping Severity at maximum: Mild Severity in ED: Mild Pain Level: 1 Location: Epigastric, Pelvis Vaginal bleeding (Compared to normal period): None Menstrual period history: LMP: December : 5 Para: 2 Associated symptoms: Nausea, Vomiting Exacerbated by: Other - Vomiting Relieved by: Denies Similar symptoms previously: Yes Recently seen / treated by doctor: Yes - Related Data Allergies/Adverse Reactions: Penicillins Allergy (Verified 12/13/19 19:30) tramadol Allergy (Verified 12/13/19 19:30) acetaminophen [From Tylenol] Adverse Reaction (Verified 12/13/19 19:30) diphenhydramine [From Benadryl] Adverse Reaction (Verified 12/13/19 19:30) Home Medications: PNV Past Medical History - General Information source: Patient - Social History Smoking Status: Never Smoker Chew tobacco use (# tins/day): No Frequency of alcohol use: None Drug Abuse: None Lives with: Spouse/Significant other Family History: Reviewed & Not Pertinent Patient has homicidal ideation: No - Past Medical History Cardiac Medical History: Reports: None Pulmonary Medical History: Reports: None EENT Medical History: Reports: None Neurological Medical History: Reports: None Endocrine Medical History: Reports: None Renal/ Medical History: Reports: None Malignancy Medical History: Reports: None GI Medical History: Reports: None Musculoskeletal Medical History: Reports Hx Musculoskeletal Trauma Skin Medical History: Reports None Psychiatric Medical History: Reports: Hx Anxiety, Hx Depression Traumatic Medical History: Reports: Hx Fractures - wrist Infectious Medical History: Reports: None Past Surgical History: Reports: Hx Orthopedic Surgery - R wrist Review of Systems - Review of Systems Constitutional: No symptoms reported EENT: No symptoms reported Cardiovascular: No symptoms reported Respiratory: No symptoms reported Gastrointestinal: Abdominal pain, Nausea, Vomiting Genitourinary: No symptoms reported Female Genitourinary: , Other - pelvic pain Musculoskeletal: No symptoms reported Skin: No symptoms reported Hematologic/Lymphatic: No symptoms reported Neurological/Psychological: No symptoms reported -: Yes All other systems reviewed and negative Physical Exam - Vital signs Vitals: Temp Pulse Resp BP Pulse Ox 98 F 77 18 129/88 H 98 03/20/20 17:44 03/20/20 17:44 03/20/20 17:44 03/20/20 17:44 03/20/20 17:44 Interpretation: Normal - General General appearance: Appears well, Alert - HEENT Head: Normocephalic, Atraumatic Eyes: Normal Pupils: PERRL - Respiratory Respiratory status: No respiratory distress Chest status: Nontender Breath sounds: Normal Chest palpation: Normal - Cardiovascular Rhythm: Regular Heart sounds: Normal auscultation Murmur: No - Abdominal Inspection: Normal Distension: No distension Bowel sounds: Normal Tenderness: Nontender Organomegaly: No organomegaly Notes: Patient had no abdominal or pelvic tenderness at time of exam. She states she had been nausea and vomiting and she does have pain when she vomited but she had no pain during her exam. He was not having nausea and vomiting during her exam. She states she had just eaten a half a sandwich from [employer]. - Back Back: Normal, Nontender - Extremities General upper extremity: Normal inspection, Nontender, Normal color, Normal ROM, Normal temperature General lower extremity: Normal inspection, Nontender, Normal color, Normal ROM, Normal temperature, Normal weight bearing. No: Emilia's sign - Neurological Neuro grossly intact: Yes Cognition: Normal Orientation: AAOx4 Bob Coma Scale Eye Opening: Spontaneous Lincoln Coma Scale Verbal: Oriented [place] Coma Scale Motor: Obeys Commands Lincoln Coma Scale Total: 15 Speech: Normal Motor strength normal: LUE, RUE, LLE, RLE Sensory: Normal - Psychological Associated symptoms: Normal affect, Normal mood - Skin Skin Temperature: Warm Skin Moisture: Dry Skin Color: Normal Course - Re-evaluation Re-evalutation: 03/20/20 23:17 Discussed labs and ultrasound with patient and written report of labs and ultrasound given to patient to follow-up with primary care and [facility]. She is 8 weeks with a live intrauterine . She did have a good healthy heartbeat with a subchorionic bleed. I did give her the papers and told her to follow-up with [facility]. She states she would call [facility] [place] and follow-up with [facility] as recommended. Patient was given a prescription for Reglan and Phenergan suppositories for her nausea. She was told she cannot take the Phenergan and the Reglan within 6 hours of each dose other. Patient did verbalize understanding that she could not take them at the same time or within 6 hours of each other. - Vital Signs Vital signs: Temp Pulse Resp BP Pulse Ox 97.8 F 72 17 101/63 100 03/20/20 22:18 03/20/20 22:18 03/20/20 22:18 03/20/20 22:18 03/20/20 22:18 - Laboratory Result Diagrams: 03/20/20 18:15 03/20/20 18:15 Laboratory results interpreted by me: 03/20/20 03/20/20 03/20/20 18:15 18:15 19:40 Sodium 136.3 L Creatinine 0.50 L Glucose 52 L Total Protein 8.4 H Beta HCG, Quant 773368.00 H Ur Leukocyte Esterase SMALL H - Diagnostic Test Radiology reviewed: Image reviewed, Reports reviewed Discharge - Discharge Clinical Impression: Pelvic pain in early , Nausea and vomiting during prior to 22 weeks gestation Condition: Stable Disposition: HOME, SELF-CARE Instructions: [facility] Additional Instructions: Pelvic Pain in Lower abdominal pain during can have many causes. We look for serious causes such as appendicitis, tubal , miscarriage, placental separation, or urinary tract infection. Less serious causes of pain include corpus luteum cyst (ovarian cyst of ) or stretching of the pelvic tissues by the enlarging uterus. Sometimes the pain comes from the bowels. If no specific cause for the pain is found, we attribute the pain to stretching of the uterine ligaments. This is called "round ligament strain." It is not dangerous. Just rest until the pain goes away. Call us or come back for reexamination if any problems occur, such as: (1) Pain that becomes more severe, steady, or becomes concentrated in one specific area. Also, pain that is more severe with movement or coughing. (2) Vomiting that persists or becomes more frequent. (3) Blood in the vomitus, urine, or bowel movements. Blood in the stool may have a tarry or black appearance. (4) Shaking chills or fever greater than 100 degrees. (5) The abdomen becomes more distended or swollen. (6) Bowel movements cease. (7) Vaginal bleeding. VOMITING: Vomiting (or nausea without vomiting) can be caused by many other different problems. It can mean that something's wrong with the stomach, such as ulcers or inflammation or the intestinal tract, such as appendicitis. But it can also be a symptom of a problem that has nothing to do with the stomach or intestines. Vomiting is common with severe headaches, earaches, tonsillitis, and kidney infections, etc. We see it with pneumonia or heart attacks. Drugs can cause nausea and vomiting. Many abdominal problems cause vomiting; for example, gallstones, kidney stones, pancreatitis, and intestinal obstruction (blocked bowels). In most cases, curing the vomiting depends on fixing the problem that caused it. For temporary relief, we may use an anti-nausea medicine. For home use, we can prescribe suppositories, chewable pills, pills that dissolve in the mouth, or liquid anti-nausea drugs. If the vomiting seems to be caused by a problem in the stomach, acid-suppressing drugs may be prescribed as well. It's important to avoid dehydration. Sip small amounts of clear liquids (soft drinks, tea, broth, etc) . Try to take fluids frequently even if you are vomiting to prevent dehydration. Take increasing amounts of fluid and when liquids are being consumed successfully, advance to small amounts of bland food (toast, soups, mashed potatoes, etc.) until you are able to resume a regular diet. Avoid aspirin, tobacco, and alcohol. If the vomiting worsens, if the problem that's making you vomit worsens, or if there's evidence of bleeding in the stomach (such as black, tarry stool, or bloody or black vomit), you should return immediately. Also, return if abdominal pain worsens or becomes localized to one area or you develop high fever. Call your doctor if you aren't improved in 24 hours. ANTINAUSEA MEDICATION: You have been given a medication to suppress nausea and vomiting. This type of medication can be given as a shot, pill, or suppository. It will usually last for many hours. Pills and shots usually last six to eight hours. For the typical illness, only one or two doses of the medication may be necessary. Mild lightheadedness may occur. This type of medicine can cause cece wsiness. Do not drive or operate dangerous machinery while under its influence. Do not mix with alcohol. See your doctor at once if you have muscle spasms or tightness, or uncontrollable motions (particularly of the neck, mouth, or jaw). Persistent vomiting or severe lightheadedness should also be evaluated by the physician. REGLAN (METOCLOPRAMIDE): Reglan has been prescribed. This medicine affects the stomach and intestines. It can be used to treat nausea and vomiting, to prevent reflux of stomach acid up into the esophagus, or to increase the contractions of the stomach and intestines. It is often prescribed for esophagitis, and for paralysis of the stomach in diabetics. Reglan can cause either mild restlessness or drowsiness. You should contact the doctor at once if you become extremely restless, anxious, or cannot sleep, or if you develop uncontrollable motions of the lips, tongue, or jaw. Do not take alcohol with this medicine. Do not drive or operate machinery until you have been taking this medicine long enough to know how it affects you. Call the doctor if you develop abdominal pains, lightheadedness, black stool, or blood in the stool or vomitus. Given you a prescription for Reglan and for Phenergan you cannot take both within 6 hours of each other's or you will have shaking and anxiety. Please do not take them within 6 hours of each other. FOLLOW-UP CARE: If you have been referred to a physician for follow-up care, call the [facility] office for an appointment as you were instructed or within the next two days. If you experience worsening or a significant change in your symptoms, notify the physician immediately or return to the Emergency Department at any time for re-evaluation. Prescriptions: Metoclopramide HCl [Reglan] 10 mg PO Q6HP PRN #20 tablet PRN Reason: For Nausea/Vomiting Promethazine HCl [Phenergan 25 mg Supp.rect] 1 supp MN Q6H #12 supp.rect Forms: Elevated Blood Pressure Referrals: [facility] [Provider Group] - Follow up as needed
[2020-03-20 18:24] LABS: ABSOLUTE BASOPHILS # (AUTO) 0.1 10^3/uL (0.0-0.2); ABSOLUTE EOSINOPHILS # (AUTO) 0.1 10^3/uL (0.0-0.6); ABSOLUTE LYMPHOCYTES (AUTO) 1.6 10^3/uL (0.5-4.7); ABSOLUTE MONOCYTES (AUTO) 0.4 10^3/uL (0.1-1.4); ABSOLUTE NEUT (AUTO) 7.1 10^3/uL (1.7-8.2); BASOPHILS % (AUTO) 1.1 % (0-2); EOSINOPHILS % (AUTO) 0.7 % (0-6); HEMATOCRIT 43.2 % (36.0-47.0); HEMOGLOBIN 14.7 g/dL (12.0-15.5); LYMPHOCYTES % (AUTO) 17.3 % (13-45); MEAN CORPUSCULAR HEMOGLOBIN 30.1 pg (27.0-33.4); MEAN CORPUSCULAR VOLUME 89 fl (80-97); MONOCYTES % (AUTO) 4.4 % (3-13); PLATELET COUNT 238 10^3/uL (150-450); RED BLOOD COUNT 4.88 10^6/uL (3.72-5.28); RED CELL DISTRIBUTION WIDTH 13.8 % (11.5-14.0); SEGMENTED NEUTROPHILS % (AUTO) 76.5 % (42-78); TOTAL CELLS COUNTED % (AUTO) 100 %; WHITE BLOOD COUNT 9.3 10^3/uL (4.0-10.5)
[2020-03-20 18:45] LABS: ALKALINE PHOSPHATASE 68 U/L (38-126); ANION GAP 11 (5-19); ASPARTATE AMINO TRANSFERASE 23 U/L (14-36); BILIRUBIN,TOTAL 0.5 mg/dL (0.2-1.3); BLOOD UREA NITROGEN 9 mg/dL (7-20); CALCIUM 9.7 mg/dL (8.4-10.2); CARBON DIOXIDE 25 mmol/L (22-30); CHLORIDE 100 mmol/L (98-107); POTASSIUM 3.8 mmol/L (3.6-5.0); TOTAL PROTEIN 8.4 g/dL (6.3-8.2)
--- NOTE | 2020-03-20 18:59 | RADIOLOGY REPORT (SQ) ---
EXAM DESCRIPTION: U/S [id number] TRNABD 1GES W/ODOP IMAGES COMPLETED DATE/TIME: 03/20/2020 6:40 pm REASON FOR STUDY: pelvic pain @12 week lmp COMPARISON: None. TECHNIQUE: Transabdominal static and realtime grayscale images acquired of the pelvis. Additional se lected spectral and color Doppler images recorded. All images stored on PACs. bHCG: Not available. CLINICAL DATES: LMP unknown. LIMITATIONS: None. FINDINGS: FETUS: Single Living intrauterine . ULTRASOUND EGA: 8 weeks 2 days ULTRASOUND KISHOR: 10/28/2020 EFW: Not applicable less than 20 weeks. CRL: 1.81 cm FHR: 152 beats per minute. SURVEY: Too early to assess. AMNIOTIC FLUID: Adequate amount. PLACENTA: Not yet developed due to early gestation. SUBCHORIONIC BLEED: A 3.2 x 1.7 x 0.5 cm complex appearing subchorionic bleed. SIZE OF BLEED: See above description. UTERUS: The uterus measures 10.7 x 7.1 x 6.2 cm. No masses. No anomalies. CERVICAL LENGTH: 2.4 cm Closed. RIGHT ADNEXA: The right ovary measures 3.0 x 2.0 x 1.8 cm. Normal ovary with normal vascular flow. No adnexal free fluid. No adnexal masses. LEFT ADNEXA: The left ovary measures 3.9 x 1.6 x 1.9 cm. Normal ovary with normal vascular flow. No adnexal free fluid. No adnexal masses. FREE FLUID: None. OTHER: No other significant finding. IMPRESSION: LIVING INTRAUTERINE . EGA: 8 weeks 2 days. Subchorionic bleed as above. Trimester of : First trimester - 0 to 13 weeks. TECHNICAL DOCUMENTATION: JOB ID: [id number] 2010 [employer]- All Rights Reserved rev-03/18 Reading location - IP/workstation name: [email or web address]
[2020-03-20 19:10] LABS: GLUCOSE 52 mg/dL (75-110)
[2020-03-20 20:02] LABS: APPEARANCE,URINE SLIGHTLY-CLOUDY; BILIRUBIN,URINE NEGATIVE (NEGATIVE); COLOR,URINE YELLOW; GLUCOSE, URINE NEGATIVE (NEGATIVE); KETONES,URINE NEGATIVE (NEGATIVE); LEUKOCYTE ESTERASE,URINE SMALL (NEGATIVE); NITRITE,URINE NEGATIVE (NEGATIVE); PROTEIN,URINE NEGATIVE (NEGATIVE); URINE SPECIFIC GRAVITY 1.014; UROBILINOGEN,URINE NEGATIVE mg/dL (<2.0)
[2020-03-20 22:20] VITALS: BP 101/63
== END 2020-03-20 22:20 | disposition home or self-care (01) ==
LOC: ER 15:54
DX: O26.891 Other specified pregnancy related conditions, first trimester (principal); R10.2 Pelvic and perineal pain; R10.13 Epigastric pain; O21.9 Vomiting of pregnancy, unspecified; O46.8X1 Other antepartum hemorrhage, first trimester; Z79.899 Other long term (current) drug therapy; Z88.0 Allergy status to penicillin; Z88.6 Allergy status to analgesic agent; Z3A.08 8 weeks gestation of pregnancy
CPT/HCPCS: 36415; 76801; 80053; 81001; 82962; 83690; 84702; 85025; 99284

== ENCOUNTER 2020-07-28 22:15 | Outpatient (CLI) | payer OTHER ==
[2020-07-28 23:22] LABS: BACTERIA (WET MOUNT) 4+ BACTERIA SEEN; EPITHELIALS (WET MOUNT) 3+ EPITHELIALS SEEN; RBCS (WET MOUNT) NO RBCS SEEN; T.VAGINALIS (WET MOUNT) NO TRICHOMONAS SEEN; WBCS (WET MOUNT) 1+ WBCS SEEN; YEAST (WET MOUNT) NO YEAST SEEN
[2020-07-28 23:36] LABS: APPEARANCE,URINE SLIGHTLY-CLOUDY; BILIRUBIN,URINE NEGATIVE (NEGATIVE); COLOR,URINE YELLOW; GLUCOSE, URINE NEGATIVE (NEGATIVE); KETONES,URINE NEGATIVE (NEGATIVE); LEUKOCYTE ESTERASE,URINE NEGATIVE (NEGATIVE); NITRITE,URINE NEGATIVE (NEGATIVE); PROTEIN,URINE NEGATIVE (NEGATIVE); URINE SPECIFIC GRAVITY 1.012; UROBILINOGEN,URINE NEGATIVE mg/dL (<2.0)
[2020-07-28 23:49] LABS: URINE AMPHETAMINES SCREEN NEGATIVE; URINE BARBITURATES SCREEN NEGATIVE; URINE BENZODIAZEPINES SCREEN NEGATIVE; URINE COCAINE SCREEN NEGATIVE; URINE MARIJUANA (THC) SCREEN NEGATIVE; URINE METHADONE SCREEN NEGATIVE; URINE PHENCYCLIDINE SCREEN NEGATIVE
--- NOTE | 2020-07-29 00:46 | RADIOLOGY REPORT (SQ) ---
Ultrasound OB limited on 07/29/2020 at 12:17 AM CLINICAL INDICATION: Evaluate cervical length, contractions COMPARISON: 03/20/2020 FINDINGS: Multiple sonographic images are obtained throughout the pelvis by transabdominal approach only, both transverse and sagittal images are obtained. Cervical length measures approximately 2.8 cm and the cervix is closed. Single living intrauterine fetus is noted currently in breech presentation. Positive cardiac activity is noted with a heart rate of 149 bpm. Placenta is anterior in location with no evidence of placenta previa or abruption. Normal amount of amniotic fluid is noted with amniotic fluid index of 14.7 cm. Estimated gestational age by measurements is an approximate 26 week six day gestation. Estimated weight is 1041 g +/- 154 g which is at the 50th percentile. No gross abnormality is noted. IMPRESSION: 1. Single living approximately 26 week six day intrauterine fetus. 2. Cervical length measures approximately 2.8 cm and the cervix is closed.
[2020-07-29 00:47] LABS: CHLAM PCR NOT DETECTED (NOT DETECT)
== END 2020-07-29 01:04 | disposition home or self-care (01) ==
LOC: LC 22:15
PROVIDERS: ATTEND Obstetrics & Gynecology
DX: O47.02 False labor before 37 completed weeks of gestation, second trimester (principal); Z3A.26 26 weeks gestation of pregnancy; Z88.0 Allergy status to penicillin; Z88.6 Allergy status to analgesic agent
CPT/HCPCS: 59899; 87210; 81001; 80307; 87491; 87591; 76815; Q0114

== ENCOUNTER 2020-08-08 22:19 | Outpatient (CLI) | payer OTHER ==
[2020-08-08 23:12] LABS: APPEARANCE,URINE SLIGHTLY-CLOUDY; BILIRUBIN,URINE NEGATIVE (NEGATIVE); COLOR,URINE YELLOW; GLUCOSE, URINE NEGATIVE (NEGATIVE); KETONES,URINE NEGATIVE (NEGATIVE); LEUKOCYTE ESTERASE,URINE NEGATIVE (NEGATIVE); NITRITE,URINE NEGATIVE (NEGATIVE); PROTEIN,URINE 30 mg/dL (NEGATIVE); URINE SPECIFIC GRAVITY 1.016
[2020-08-08 23:36] LABS: URINE AMPHETAMINES SCREEN NEGATIVE; URINE BARBITURATES SCREEN NEGATIVE; URINE BENZODIAZEPINES SCREEN NEGATIVE; URINE COCAINE SCREEN NEGATIVE; URINE MARIJUANA (THC) SCREEN NEGATIVE; URINE METHADONE SCREEN NEGATIVE; URINE PHENCYCLIDINE SCREEN NEGATIVE
== END 2020-08-08 23:38 | disposition home or self-care (01) ==
LOC: LC 22:19
PROVIDERS: ATTEND Obstetrics & Gynecology
DX: O47.03 False labor before 37 completed weeks of gestation, third trimester (principal); Z3A.28 28 weeks gestation of pregnancy; Z88.0 Allergy status to penicillin
CPT/HCPCS: 59899; 81001; 80307; Q0114

== ENCOUNTER 2020-09-17 21:27 | Outpatient (CLI) | payer OTHER | END 2020-09-17 22:50 | disposition home or self-care (01) | LOC: LB 21:27 → LC 22:50 | PROVIDERS: ATTEND Obstetrics & Gynecology Gynecology | DX: O26.893 Other specified pregnancy related conditions, third trimester (principal); R10.2 Pelvic and perineal pain; Z3A.34 34 weeks gestation of pregnancy | CPT/HCPCS: 59025; 84112 ==